=== PATIENT | female | born 1990 | race Caucasian/White ===

== ENCOUNTER 2019-08-01 06:57 | Emergency (ER) | payer SELFPAY ==
[~2019-08-01] VITALS: Ht 149.9 cm; Wt 65.8 kg
[2019-08-01 07:00] VITALS: BP 116/58
--- NOTE | 2019-08-01 07:04 | NUR ---
FLU SWAB COLLECTED.
--- NOTE | 2019-08-01 07:30 | NUR ---
PT C/O SUBJECTIVE FEVER X2 DAYS, NON PRODUCTIVE COUGH, LIGHTHEADED/DIZZINESS, SOB, 5/10 D[address] CP IN UPPER CENTER OF CHEST WITH DEEP INSPIRATION, DENIES TAKING ANY MEDICATIONS FOR SYMPTOMS. DENIES N/V/D. DENIES PMH AND KNA. LUNG SOUNDS CLEAR AND EQUAL BILATERALLY, SITTING UPRIGHT IN GURNEY. VSS. WILL CONTINUE TO MONITOR.
--- NOTE | 2019-08-01 09:09 | NUR ---
PT RESTING IN BED, SIDE RAIL X1
[2019-08-01 09:31] VITALS: BP 116/58
--- NOTE | 2019-08-01 09:31 | NUR ---
Patient discharged with v/s stable. Written and verbal after care instructions given and explained. Patient alert, oriented and verbalized understanding of instructions. Ambulatory with steady gait. All questions addressed prior to discharge. ID band removed. Patient advised to follow up with PMD. Rx of PROMETHAZINE given. Patient educated on indication of medication including possible reaction and side effects. Opportunity to ask questions provided and answered.
== END 2019-08-01 09:31 | disposition home or self-care (01) ==
LOC: MED 06:57
DX: B34.9 Viral infection, unspecified (principal); Z90.49 Acquired absence of other specified parts of digestive tract; Z98.890 Other specified postprocedural states
CPT/HCPCS: 71045; 87804; 99284; Q0092

== ENCOUNTER 2021-06-13 12:13 | Emergency (ER) | payer SELFPAY ==
[~2021-06-13] VITALS: Ht 149.9 cm; Wt 80.7 kg
[2021-06-13 12:30] VITALS: BP 147/78
--- NOTE | 2021-06-13 12:35 | NUR ---
Patient ambulated to bed 12 with steady/even gait.
[2021-06-13] MEDS ORDERED: HYDROcodone/APAP 5/325 MG 1 TAB TAB PO ONE (13:00)
[2021-06-13] MEDS ORDERED: KETOROLAC 30 MG/ML VIAL IM ONE (13:00)
--- NOTE | 2021-06-13 13:00 | NUR ---
Dr. Baeza is evaluating patient at bedside.
--- NOTE | 2021-06-13 13:10 | NUR ---
31 y/o F BIB self from home c/o suprapubic pain since this morning. Patient A&Ox4, ambulatory, states acute onset while waking up this morning. 8/10, cramping/sharp/burning/intermittent, radiating across low abdomen on onset. Suprapubic region tender to palpation. Patient denies nausea, vomiting, diarrhea, constipation, vaginal bleeding, fever, chills, dysuria, urinary symptoms. Denies medications prior to arrival. VSS. Respirations even/unlabored. Bed locked in lowest position, side rails x 1. PMH/Meds/Allergies: Denies Sx: tubal ligation, cholecystectomy
[2021-06-13 13:49] LABS: APPEARANCE,URINE HAZY (CLEAR); BILIRUBIN,URINE NEGATIVE (NEGATIVE); BLOOD, URINE TRACE-I (NEGATIVE); COLOR,URINE YELLOW (YELLOW); LEUKOCYTE ESTERASE ,URINE NEGATIVE (NEGATIVE); NITRITE, URINE NEGATIVE (NEGATIVE); PH,URINE 6.5 (5.0-9.0); UGLUCOSE NEGATIVE (NEGATIVE)
--- NOTE | 2021-06-13 13:56 | NUR ---
Pt reports + relief to pain; 0/10 at this time. All pt needs met.
[2021-06-13 14:30] VITALS: BP 139/81
--- NOTE | 2021-06-13 14:45 | NUR ---
Patient appears to be resting comfortably in bed. Vital Signs within normal limits. Respirations even and unlabored.
[2021-06-13] MEDS ORDERED: NAPR-54 PO (15:20)
--- NOTE | 2021-06-13 15:32 | NUR ---
Patient reports + relief to pain; remains 0/10 at this time. Denies nausea. All pt needs met.
[2021-06-13 16:02] LABS: RBC,URINE 0-5 /HPF (0-5); TRICHOMONAS,URINE None Seen /HPF (None Seen); URIC ACID CRYSTALS,URINE None Seen /HPF (None Seen); WBC,URINE 0-5 /HPF (0-5); YEAST,URINE None Seen /HPF (None Seen)
[2021-06-13 16:03] LABS: CALCIUM OXALATE CRYSTALS,UR None Seen /HPF (None Seen); COARSE GRANULAR CASTS,URINE None Seen /LPF (None Seen); FINE GRANULAR CASTS,URINE None Seen /LPF (None Seen); HYALINE CASTS, URINE None Seen /LPF (None Seen); OTHER CASTS, URINE None Seen /LPF (None Seen); OTHER CRYSTALS,URINE None Seen /HPF (None Seen); RED BLOOD CELL CASTS,URINE None Seen /LPF (None Seen); TRIPLE PHOSPHATE CRYSTAL,UR None Seen /HPF (None Seen); URINE AMORPHOUS URATE None Seen /HPF (None Seen); WAXY CASTS,URINE None Seen /LPF (None Seen)
== END 2021-06-13 15:51 | disposition home or self-care (01) ==
LOC: MED 12:13
DX: N94.6 Dysmenorrhea, unspecified (principal)
CPT/HCPCS: 81001; 81025; 96372; 99283; J1885; 81002

== ENCOUNTER 2021-09-16 18:08 | Emergency (ER) | payer SELFPAY ==
[~2021-09-16] VITALS: Ht 149.9 cm; Wt 80.7 kg
[~2021-09-16 18:08] MED LIST: NAPR-54 PO
[2021-09-16 18:14] VITALS: BP 154/83
--- NOTE | 2021-09-16 18:21 | NUR ---
PT AMB TO BED 7.
--- NOTE | 2021-09-16 18:31 | NUR ---
31 Y/O FEMALE BIB SELF C/O COUGH, SORE THROAT, COL[place]GA , RUNNY NOSE X 3 DAYS AND C/O MID CHEST PAIN X LAST NIGHT. COVID TESTED NEGATIVE LAST NIGHT. PT DENIES SOB, FEVER OR CHILLS. T. 98.5, P 85, R22, O2 SAT 96%, BP 154/83 ROOM AIR. LUNG SOUNDS CTA. PT IS ALERT AND ORIENTED X4. BED LOCKED IN LOWEST POSITION. BED RAIL X1. PMH: DENIES MEDS: DENIES NKA
--- NOTE | 2021-09-16 18:40 | NUR ---
XR AT PT BEDSIDE
--- NOTE | 2021-09-16 19:17 | NUR ---
Pt report given to MARKELL FERNANDES. Transfer of care at this time.
[2021-09-16] MEDS: IBUPROFEN 600 MG TAB PO ONE (19:26)
[2021-09-16] MEDS ORDERED: IBUP-2213 PO (19:42)
[2021-09-16] MEDS ORDERED: PROM118S5 PO (19:42)
--- NOTE | 2021-09-16 19:50 | NUR ---
Patient discharged with v/s stable. Written and verbal after care instructions given and explained. Patient verbalized understanding. Ambulatory with steady gait. All questions addressed prior to discharge. Advised to follow up with PMD.
--- NOTE | 2021-09-16 20:58 | NUR ---
The patient's care was reviewed and supervised by Nora Matias RN.
== END 2021-09-16 19:50 | disposition home or self-care (01) ==
LOC: MED 18:08
DX: J06.9 Acute upper respiratory infection, unspecified (principal); Z79.899 Other long term (current) drug therapy; Z79.1 Long term (current) use of non-steroidal anti-inflammatories (NSAID)
CPT/HCPCS: 71046; 93005; 99283

== ENCOUNTER 2022-11-22 15:47 | Emergency (ER) | payer MEDICAID ==
[~2022-11-22] VITALS: Ht 149.9 cm; Wt 65.8 kg
[~2022-11-22 15:47] MED LIST changes: +IBUP-2213 PO; +PROM118S5 PO
[2022-11-22 15:54] VITALS: BP 153/80; PULSE 75; RESP 20; TEMP 98; O2SAT 99
[2022-11-22] MEDS ORDERED: AMOX1TAB8 PO (16:43)
[2022-11-22] MEDS ORDERED: OFLO5SOL27 LEFT EAR (16:43)
[2022-11-22 16:57] VITALS: BP 140/80; PULSE 77; RESP 20; TEMP 98; O2SAT 99
--- NOTE | 2022-11-22 16:57 | NUR ---
Patient discharged with v/s stable. Written and verbal after care instructions FOR [employer] given and explained. Patient alert, oriented and verbalized understanding of instructions. Ambulatory with steady gait. All questions addressed prior to discharge. ID band removed. Patient advised to follow up with PMD. Rx of AMOXICILLIN/POTASSIUM AND OFLOXACIN given. Opportunity to ask questions provided and answered. WORK NOTE PROVIDED
== END 2022-11-22 16:57 | disposition home or self-care (01) ==
LOC: MED 15:47
DX: H60.92 Unspecified otitis externa, left ear (principal); Z79.899 Other long term (current) drug therapy
CPT/HCPCS: 99283

== ENCOUNTER 2023-02-20 00:06 | Emergency (ER) | payer MEDICAID ==
[~2023-02-20] VITALS: Ht 149.9 cm; Wt 65.8 kg
[~2023-02-20 00:06] MED LIST changes: +AMOX1TAB8 PO; +OFLO5SOL27 LEFT EAR
[2023-02-20 00:22] VITALS: BP 148/83; PULSE 82; RESP 16; TEMP 97.4; O2SAT 99
[2023-02-20] MEDS ORDERED: CIPR7.5S OT (01:00)
[2023-02-20] MEDS ORDERED: IBUP-2218 PO (01:00)
[2023-02-20] MEDS ORDERED: ACET-10509 PO (01:00)
[2023-02-20] MEDS ORDERED: HYDROcodone/APAP 5/325 MG 1 TAB TAB PO ONE (01:05)
[2023-02-20 01:49] VITALS: BP 138/85; PULSE 85; RESP 16; TEMP 97.4; O2SAT 99
== END 2023-02-20 01:49 | disposition home or self-care (01) ==
LOC: MED 00:06
DX: H60.502 Unspecified acute noninfective otitis externa, left ear (principal); Z79.899 Other long term (current) drug therapy; Z79.1 Long term (current) use of non-steroidal anti-inflammatories (NSAID); Z79.2 Long term (current) use of antibiotics
CPT/HCPCS: 99283